=== PATIENT | female | born 1965 | race Caucasian/White ===

== ENCOUNTER 2016-11-23 14:19 | Emergency (ER) | payer BC ==
[2016-11-23] MEDS ORDERED: MORPHINE SULFATE 4 MG/ML SYRG SC ONE (14:30)
[2016-11-23] MEDS ORDERED: MORPHINE SULFATE 4 MG/ML SYRG ONE (14:32)
--- NOTE | 2016-11-23 14:33 | ERNOTE ---
Lower Extremity HPI - General Lower Extremities Pain: ankle: right Time Seen by Provider: 11/23/16 14:24 Source: patient Exam Limitations: no limitations - Immun/Allergies/Home Medications Allergies/Adverse Reactions: Allergies Allergy/AdvReac Type Severity Reaction Status Date / Time codeine AdvReac Intermediate Vomiting Verified 11/05/14 08:48 Home Medications: HOME MEDICATIONS ALPRAZolam [Xanax] 2 mg PO TID PRN 09/27/14 [Last Taken Unknown] Cholecalciferol (Vitamin D3) [Vitamin D-3] 2,000 unit PO DAILY 09/27/14 [Last Taken Unknown] Dextroamphetamine/Amphetamine [Adderall Xr 20 mg Capsule] 20 mg PO DAILY [Last Taken Unknown] Levothyroxine Sodium [Synthroid] 75 mcg PO DAILY 09/27/14 [Last Taken Unknown] [place] Carbonate 300 mg PO TID 09/27/14 [Last Taken Unknown] Mv-Min/Iron/Folic/Calcium/Vitk [One-A-Day Women's Tablet] 1 each PO DAILY [Last Taken Unknown] buPROPion HCL [Wellbutrin XL] 150 mg PO DAILY 09/27/14 [Last Taken Unknown] Cymbalta 11/23/16 [Last Taken Unknown] HYDROcodone/ACETAMINOPHEN [[place] 5-325] 1 each PO Q4H #20 tablet 11/23/16 [Last Taken Unknown] - History of Present Illness Narrative: Patient was helping to carry a couch down the stairs at her daughter's house and rolled her right ankle. He should not complains of moderate to severe pain in the right ankle, swelling and the inability to bear any weight on that ankle. Time of the incident was just prior to arrival. Occurred: just prior to arrival Location of Incident: home Method of Injury: Reports: twisted Reason for Fall: Reports: unknown Loss of Consciousness: Reports: no loss of consciousness Associated Symptoms: Reports: unable to bear weight Other Injuries: Reports: none Review of Systems - Review of Systems Constitutional: Present: See HPI EYE: Present: no symptoms reported ENT: Present: no symptoms reported Respiratory: Present: no symptoms reported Cardiology: Present: no symptoms reported Gastrointestinal/Abdominal: Present: no symptoms reported Genitourinary: Present: no symptoms reported Musculoskeletal: Present: See HPI Skin: Present: no symptoms reported Neurological: Present: no symptoms reported Endocrine: Present: no symptoms reported Hematologic/Lymphatic: Present: no symptoms reported Psych: Present: no symptoms reported Physical Exam - Physical Exam General Appearance: Present: wd/wn, alert, moderate distress Eye Exam: Normal inspection: bilateral, PERRL: bilateral Ears, Nose, Throat: Present: normal ENT inspection, H, normal pharynx Neck: Present: normal inspection, nontender Respiratory: Present: no respiratory distress, normal breath sounds, no accessory muscle use, chest nontender, lungs clear Cardiovascular/Chest: Present: regular rate, rhythm, no murmur, normal peripheral pulses Gastrointestinal/Abdominal: Present: normal bowel sounds, nontender, nondistended, soft, no organomegaly Rectal Exam: Present: deferred Back Exam: Present: normal inspection, normal range of motion Extremity Exam: Present: decreased range of motion, bony tenderness, joint swelling Neurological Exam: Present: alert, oriented, normal mood/affect Skin Exam: Present: normal color, warm/dry Lymphatic Exam: Present: no adenopathy ED Progress - Vital Signs Patient's Vital Signs:: I have reviewed the patient's vital signs. - X-Ray X-Ray #1 X-Ray: ankle Interpretation: Reviewed by me Plan - Plan Plan: Patient to be placed in a cam boot, will be given crutches and instructions for no weightbearing and will call Dr. Neil for an appointment. Departure Clinical Impression: Ankle fracture, lateral malleolus, closed Qualifiers: Encounter type: initial encounter Fracture alignment: nondisplaced Laterality: right Qualified Code(s): S82.64XA - Nondisplaced fracture of lateral malleolus of right fibula, initial encounter for closed fracture - Departure Disposition: Home self-care Condition: Good Instructions: Cast or Splint Care, [id number], Fibular Ankle Fracture Treated With or Without Immobilization, Adult, Ankle Fracture, [id number] Referrals: Jaylen Neil MD [Staff Physician] - Prescriptions: HYDROcodone/ACETAMINOPHEN [[place] 5-325] 1 each PO Q4H #20 tablet
[2016-11-23 15:44] VITALS: BP 127/87
== END 2016-11-23 15:30 | disposition home or self-care (01) ==
LOC: ER 14:19
PROC: 2W3SX1Z Immobilization of Right Foot using Splint (ICD-10-PCS; principal; 2016-11-23)
DX: S82.64XA Nondisplaced fracture of lateral malleolus of right fibula, initial encounter for closed fracture (principal)